=== PATIENT | male | born 1985 | race Caucasian/White ===

== ENCOUNTER → 2019-02-12 06:23 | Outpatient (CLI) | payer OTHER | END | disposition home or self-care (01) | LOC: LAB 06:23 | DX: C62.12 Malignant neoplasm of descended left testis (principal) ==

== ENCOUNTER → 2019-02-12 07:47 | Outpatient (CLI) | payer OTHER | END | disposition home or self-care (01) | LOC: LAB 07:47 | DX: N20.0 Calculus of kidney (principal) ==

== ENCOUNTER 2019-02-12 08:36 | Outpatient (CLI) | payer OTHER | END 2019-02-12 08:46 | disposition home or self-care (01) | LOC: MRI 08:36 | DX: C62.12 Malignant neoplasm of descended left testis (principal) | CPT/HCPCS: 72197; 74183 ==

== ENCOUNTER 2022-09-13 09:14 | Outpatient (CLI) | payer OTHER | END 2022-09-13 09:36 | disposition home or self-care (01) | LOC: RAD 09:14 | DX: M54.2 Cervicalgia (principal); M25.511 Pain in right shoulder | CPT/HCPCS: 73218 ==